=== PATIENT | male | born 1950 | race Caucasian/White ===

== ENCOUNTER 2017-08-17 20:49 | Inpatient (IN) | payer MEDICAID ==
[~2017-08-17] VITALS: Ht 175.3 cm; Wt 87.7 kg
--- NOTE | 2017-08-17 20:49 | NUR ---
TO BED 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 PT WAS GIVEN 3 NITRO SPRAY AND ASPIRIN 162MG PO WITH SOME RELIEF. PT AAOX4 NO ACUTE DISTRESS NOTED, RESP EVEN AND UNLABORED. SKIN WARM, NONDIAPHORETIC. PLACE PT ON CARDIAC MONITORING, CONTINUOUS POX. ER MD AT BEDSIDE TO EVAL PT WITH ORDERS RECEIVED. 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
--- NOTE | 2017-08-17 20:59 | NUR ---
CALLED NURSING SUP. FOR TELE BED
[2017-08-17] MEDS ORDERED: ASPIRIN 325 MG TABLET PO ONE (21:00)
[2017-08-17] MEDS ORDERED: NITROGLYCERIN PACKET 1 GM PACKET TD ONE (21:00)
--- NOTE | 2017-08-17 21:01 | NUR ---
EKG IN PROGRESS.
--- NOTE | 2017-08-17 21:01 | NUR ---
OPERATOR AND TRUCK DRIVER AT BEDSIDE FOR BLOOD DRAW.
[2017-08-17] MEDS ORDERED: NITROGLYCERIN PACKET 1 GM PACKET ONE (21:05)
[2017-08-17] MEDS ORDERED: ASPIRIN 81 MG TAB.CHEW ONE (21:05)
[2017-08-17 21:08] LABS: BASOPHILS % (AUTO) 0.4 % (0.0-2.0); EOSINOPHILS # (AUTO) 0.1 /CMM (0.0-0.7); HEMATOCRIT 44 % (39-51); LYMPHOCYTES # (AUTO) 1.8 /CMM (0.8-4.8); LYMPHOCYTES % (AUTO) 27.9 % (20.0-44.0); MEAN CORPUSCULAR HEMOGLOBIN 31 PG (26.0-33.0); MEAN CORPUSCULAR HGB CONC 34 g/dl (31.0-36.0); MEAN CORPUSCULAR VOLUME 90 fL (80-96); MONOCYTES # (AUTO) 0.5 /CMM (0.1-1.30); MONOCYTES % (AUTO) 7.5 % (2.0-12.0); NEUTROPHILS # (AUTO) 3.9 /CMM (1.8-8.9); NEUTROPHILS % (AUTO) 63.2 % (43.0-81.0); PLATELET COUNT (AUTO) 241 /CMM (150-450); RDW COEFFICIENT OF VARIATION 12.6 (11.5-15.0); RED BLOOD CELL COUNT(AUTO) 4.88 MIL/uL (4.5-6.0); WHITE BLOOD COUNT (AUTO) 6.3 K/uL (4.3-11.0)
--- NOTE | 2017-08-17 21:09 | NUR ---
PT MEDICATED ORDERED.
[2017-08-17 21:22] LABS: INR 0.97 (0.87-1.13); PROTHROMBIN TIME 10.1 SECS (9.5-12.7)
[2017-08-17 21:23] LABS: CALCIUM, SERUM 8.8 mg/dL (8.5-10.1); CARBON DIOXIDE 28 mmol/L (21-32); CHLORIDE 105 mmol/L (98-107); CREATININE 0.9 mg/dL (0.6-1.3); GLUCOSE 106 mg/dL (74-106); POTASSIUM 4.1 mmol/L (3.5-5.1); SODIUM SERUM 138 mmol/L (136-145); UREA NITROGEN, BLOOD 16 mg/dL (7-18)
[2017-08-17 21:32] LABS: TROPONIN I < 0.017 ng/mL (0.00-0.056)
--- NOTE | 2017-08-17 21:36 | NUR ---
CECILIA JONES, DEMETRIA FIERRO NP HAND DRILLER
--- NOTE | 2017-08-17 21:42 | NUR ---
REPORT CALLED TO COMMUNITY EDUCATION COORDINATORAURELIA DOSHI. PENDING HOSPITAL ADMISSION.
--- NOTE | 2017-08-17 21:51 | NUR ---
ER SPOKE TO DEMETRIA EDWARD REGARDING PT ADMISSION. WILL TRANSPORT PT VIA ACLS PROTOCOL.
[2017-08-17] MEDS ORDERED: Z GUARD REMEDY 2 OZ OINT TP PRN (22:30)
[2017-08-17] MEDS ORDERED: ACETAMINOPHEN 325 MG TABLET PO PRN (22:30)
[2017-08-17] MEDS ORDERED: NITROGLYCERIN 0.4 MG/TAB BOTTLE SL PRN (22:30)
[2017-08-17] MEDS ORDERED: MORPHINE SULFATE INJ 2 MG/ML DISP.SYRIN IV PRN (22:30)
[2017-08-17] MEDS ORDERED: HYDROCODONE/APAP 5/325MG 1 EACH TABLET PO PRN (22:30)
[2017-08-17] MEDS ORDERED: MAGNESIUM HYDROXIDE 30 ML UDC PO PRN (22:30)
[2017-08-17] MEDS ORDERED: ENOXAPARIN SODIUM 40 MG/0.4 ML DISP.SYRIN SQ SCH (22:30)
[2017-08-17] MEDS ORDERED: ZOLPIDEM TARTRATE 5 MG TABLET PO PRN (22:30)
[2017-08-17] MEDS ORDERED: MAG HYDROX/AL HYDROX/SIMETH 30 ML UDC PO PRN (22:30)
[2017-08-17] MEDS ORDERED: ONDANSETRON HCL/PF 4 MG/2 ML VIAL IVP PRN (22:30)
--- NOTE | 2017-08-17 22:30 | NUR ---
RN ADMITTING NOTES RECEIVED REPORT FROM ED RN. PATIENT ARRIVED ON UNIT TO ROOM 316-2 [facility]IA [facility]. A/A/O X3, FAROESE SPEAKING ONLY BUT ABLE TO STATE PAIN. ACCOMPANIED BY FAMILY WHO TRANSLATED TO ANSWER QUESTIONS. BREATHING EVEN & UNLABORED, SATING WELL ON ROOM AIR. DENIES SOB OR DIFFICULTY BREATHING. ON TELE SINUS RHYTHM IN THE 60S. C/O PAIN RATED 2 ON PAIN SCALE BUT NON-RADIATING. LEFT HAND IV #20 INTACT & PATENT W/ DRESSING CDI, SALINE LOCKED. NOTED TO BE W/ STEADY GAIT WHEN AMBULATED FROM RNEY TO BED. PATIENT ORIENTED TO ROOM W/ SAFETY MEASURES IN PLACE & CALL LIGHT WITHIN REACH. WILL CONTINUE TO MONITOR. AWAITING ADMITTING ORDERS.
[2017-08-17 22:53] VITALS: BP 141/88
[2017-08-17] MEDS ORDERED: ENOXAPARIN SODIUM 40 MG/0.4 ML DISP.SYRIN SQ ONE (23:01)
[2017-08-17] MEDS ORDERED: METOPROLOL TARTRATE 50 MG TABLET ONE (23:01)
[2017-08-17] MEDS: METOPROLOL TARTRATE 50 MG TABLET PO SCH (23:04)
[2017-08-18] VITALS: BP 101/67
[2017-08-18 03:44] LABS: CALCIUM, SERUM 8.7 mg/dL (8.5-10.1); MAGNESIUM 2.1 mg/dL (1.8-2.4); PHOSPHORUS 3.3 mg/dL (2.5-4.9)
[2017-08-18 04:00] VITALS: BP 102/61
[2017-08-18 05:05] LABS: BASOPHILS % (AUTO) 0.4 % (0.0-2.0); EOSINOPHILS % (AUTO) 0.8 % (0.0-6.0); HEMATOCRIT 41 % (39-51); HEMOGLOBIN 13.5 g/dL (13.5-17.5); LYMPHOCYTES # (AUTO) 1.1 /CMM (0.8-4.8); LYMPHOCYTES % (AUTO) 20.1 % (20.0-44.0); MEAN CORPUSCULAR HEMOGLOBIN 30 PG (26.0-33.0); MEAN CORPUSCULAR HGB CONC 33 g/dl (31.0-36.0); MEAN CORPUSCULAR VOLUME 90 fL (80-96); MONOCYTES # (AUTO) 0.5 /CMM (0.1-1.30); MONOCYTES % (AUTO) 8.9 % (2.0-12.0); NEUTROPHILS # (AUTO) 3.8 /CMM (1.8-8.9); NEUTROPHILS % (AUTO) 69.8 % (43.0-81.0); PLATELET COUNT (AUTO) 237 /CMM (150-450); RDW COEFFICIENT OF VARIATION 12.6 (11.5-15.0); RED BLOOD CELL COUNT(AUTO) 4.53 MIL/uL (4.5-6.0); WHITE BLOOD COUNT (AUTO) 5.4 K/uL (4.3-11.0)
--- NOTE | 2017-08-18 07:10 | NUR ---
MS RN OPENING NOTES RECEIVED PT FROM NIGHTSHIFT NURSE IN STABLE CONDITION. PT A/O X3. NO SOB OR SIGNS OF DISTRESS NOTED. BREATHING EVEN AND UNLABORED/ PT DENIES ANY CHEST PAIN AT THIS TIME. NPO MAINTAINED SINCE MIDNIGHT FOR POSSIBLE STRESS TEST. IV NOTED TO BE INTACT AND PATENT. NO REDNESS OR SIGNS OF INFILTRATION NOTED. BED IN LOW LOCKED POSITION, SIDE RAILS UP X2, CALL LIGHT WITHIN REACH. WILL CONTINUE TO MONITOR
[2017-08-18] MEDS ORDERED: REGADENOSON 0.4 MG/5 ML DISP.SYRIN IVP ONE (07:30)
[2017-08-18 08:00] VITALS: BP 98/60
[2017-08-18] MEDS ORDERED: ENOXAPARIN SODIUM 40 MG/0.4 ML DISP.SYRIN SQ SCH (08:05)
[2017-08-18] MEDS: METOPROLOL TARTRATE 50 MG TABLET PO SCH (08:32)
[2017-08-18] MEDS ORDERED: ASPIRIN EC 81 MG TABLET.DR PO SCH (09:00)
[2017-08-18] MEDS ORDERED: UNK BP MEDICATION (09:12)
--- NOTE | 2017-08-18 11:28 | NUR ---
MS RN NOTES PT TAKEN DOWN FOR STRESS TEST
[2017-08-18 16:00] VITALS: BP 136/76
--- NOTE | 2017-08-18 18:24 | NUR ---
MS COURSE DEVELOPER NOTES PT DISCHARGED FROM FACILITY IN STABLE CONDITION. ALL NEEDS MET DURING SHIFT AND ORDERS CARRIED OUT ACCORDINGLY. IV SUCCESSFULLY REMOVED WITH NO ADVERSE REACTIONS. DISCHARGE INSTRUCTIONS PROVIDED USING [employer]. PT AND FAMILY VERBALIZED UNDERSTANDING OF DISCHARGE INSTRUCTIONS. ALL NEEDS WERE MET DURING SHIFT AND ORDERS CARRIED OUT ACCORDINGLY. PT SIGNED ALL DISCHARGE PAPERWORK AND LEFT WITH ALL BELONGINGS.
== END 2017-08-18 18:23 | disposition home or self-care (01) | DRG 206 ==
LOC: ER 20:53 → TELE 21:39 → MED 08-18 08:06
PROVIDERS: ADMIT Nurse Practitioner Acute Care; ATTEND Nurse Practitioner Acute Care
DX: M94.0 Chondrocostal junction syndrome [Tietze] (principal); I10 Essential (primary) hypertension
CPT/HCPCS: 36415; 71010-TC; 80048-TC; 80061-TC; 83735-TC; 84100-TC; 84484-TC; 85025-TC; 85730-TC; 87081-TC; 93307-TC; A4606; A9502; J1650; J2785; Z7610